=== PATIENT | male | born 1955 | race African-American/Black ===

== ENCOUNTER 2019-07-14 17:18 | Emergency (ER) | payer MEDICARE, OTHER ==
[~2019-07-14] VITALS: Ht 172.7 cm; Wt 95.5 kg
[2019-07-14 17:22] VITALS: Ht 172.7 cm; Wt 95.5 kg
[2019-07-14] MEDS ORDERED: CARDIZEM CD240 MG PO (17:24)
[2019-07-14] MEDS ORDERED: BYSTOLIC10 MG PO (17:24)
[2019-07-14 18:01] LABS: BASOPHILS 0.2 % (0-2); EOSINOPHILS 0 % (0-7); HEMOGLOBIN 12.9 g/dL (13.5-17.5); IMMATURE GRANULOCYTES 0.2 % (0-5); LYMPHOCYTES 9.9 % (15-50); MCH 25.1 pg (26.0-34.0); MCHC 33.9 g/dL (31.0-37.0); MCV 73.9 fL (80.0-100.0); MEAN PLATELET VOLUME 8.8 fL (7.4-10.4); MONOCYTES 9.3 % (2-11); NEUTROPHILS 80.4 % (40-80); PLATELET COUNT 196 10x3/uL (130-400); RBC 5.14 10x6/uL (4.20-6.10); RDW 15.2 % (11.5-14.5); WBC 5.7 10x3/uL (4.8-10.8)
[2019-07-14 18:21] LABS: ANION GAP 16.8 mmol/L (8-16); CALCIUM 8.2 mg/dL (8.5-10.1); CARBON DIOXIDE 22.3 mmol/L (21.0-32.0); CREATININE - SERUM 1.4 mg/dL (0.6-1.3); POTASSIUM - SERUM 4.1 mmol/L (3.5-5.1)
[2019-07-14] MEDS ORDERED: ZITHROMAX500 MG PO (18:22)
[2019-07-14] MEDS ORDERED: MEDROL DOSE PACK4 MG PO (18:22)
[2019-07-14] MEDS ORDERED: PROMETH-CODEIN 65 ML PO (18:22)
[2019-07-14 18:27] LABS: ALBUMIN 3.2 g/dL (3.4-5.0); BILIRUBIN - TOTAL 0.26 mg/dL (0.2-1.3); PROTEIN - SERUM 7.4 g/dL (6.4-8.2)
[2019-07-14 19:13] VITALS: BP 142/82
== END 2019-07-14 19:13 | disposition home or self-care (01) ==
LOC: D.ER 17:18
PROVIDERS: Emergency Medicine
DX: J40 Bronchitis, not specified as acute or chronic (principal); J06.9 Acute upper respiratory infection, unspecified; I10 Essential (primary) hypertension